=== PATIENT | male | born 2000 ===

== ENCOUNTER 2020-11-26 02:38 | Emergency (ER) | payer OTHER ==
[~2020-11-26] VITALS: Ht 180.3 cm; Wt 122.5 kg
== END 2020-11-26 04:49 | disposition home or self-care (01) ==
LOC: ED 02:38
DX: R45.851 Suicidal ideations (principal); F15.10 Other stimulant abuse, uncomplicated; F17.200 Nicotine dependence, unspecified, uncomplicated
CPT/HCPCS: 80053; 80176; 81001; 84443; 85025; 99285